=== PATIENT | male | born 1970 | race Caucasian/White ===

== ENCOUNTER → 2023-10-04 12:31 | Outpatient (REF) | payer MEDICARE, SELFPAY ==
[2023-10-04 15:30] LABS: % Eosinophils 1.3 % (0-6); % Immature Granulocytes 0.6 % (0-0.5); % Lymphocytes 18.4 % (20.5-51.1); % Monocytes 7.5 % (1.7-9.3); % Neutrophils 71.2 % (42.2-75.2); Absolute Basophils 0.2 10^3/uL (0-0.2); Absolute Eosinophils 0.2 10^3/uL (0-0.7); Absolute Immature Granulocytes 0.1 10^3/uL (0-0.05); Absolute Lymphocytes 2.9 10^3/uL (1.2-3.4); Absolute Monocytes 1.2 10^3/uL (0.1-0.6); Absolute Neutrophils 11.4 10^3/uL (1.4-6.5); Hematocrit 48.6 % (39.0-52.0); Hemoglobin 16.5 g/dL (13.0-18.0); Mean Corpuscular Hgb 32.7 pg (27.0-31.0); Mean Corpuscular Volume 96.2 fL (80.0-94.0); Mean Platelet Volume 9.7 fL (7.4-10.4); Nucleated Red Blood Cells % 0 % (-); Platelet Count 936 10^3/uL (130-400); Red Blood Cell Count 5.05 10^6/uL (4.70-6.10); Red Cell Dist. Width 13.6 % (11.5-14.5); White Blood Cell Count 15.9 10^3/uL (4.8-10.8)
[2023-10-04 15:49] LABS: ALT (SGPT) 25 U/L (0-50); AST (SGOT) 33 U/L (17-59); Albumin 3.8 g/dl (3.5-5.0); Alkaline Phosphatase 85 U/L (38-126); Blood Urea Nitrogen 8 mg/dl (9-20); Calcium 9.9 mg/dl (8.4-10.2); Carbon Dioxide 23 mmol/L (22-30); Chloride 101 mmol/L (98-107); Glucose 112 mg/dl (70-99); Potassium 4.1 mmol/L (3.5-5.1); Sodium 136 mmol/L (135-145); Total Bilirubin 0.6 mg/dl (0.2-1.3); Total Protein 6.7 g/dl (6.3-8.2); eGFR > 60.00
== END ==
LOC: HWLAB 12:31
PROVIDERS: ATTENDING PHYSICIAN Internal Medicine Hematology & Oncology; FAMILY PHYSICIAN Internal Medicine
DX: D45 Polycythemia vera (principal)
CPT/HCPCS: 36415; 80053; 85025

== ENCOUNTER → 2023-11-23 11:46 | Outpatient (REF) | payer MEDICARE, SELFPAY ==
[2023-11-23 15:04] LABS: % Basophils 1.1 % (0-2); % Eosinophils 1.4 % (0-6); % Immature Granulocytes 0.4 % (0-0.5); % Lymphocytes 19.1 % (20.5-51.1); % Monocytes 8.9 % (1.7-9.3); % Neutrophils 69.1 % (42.2-75.2); Absolute Basophils 0.2 10^3/uL (0-0.2); Absolute Eosinophils 0.2 10^3/uL (0-0.7); Absolute Immature Granulocytes 0.1 10^3/uL (0-0.05); Absolute Lymphocytes 3.2 10^3/uL (1.2-3.4); Absolute Monocytes 1.5 10^3/uL (0.1-0.6); Absolute Neutrophils 11.7 10^3/uL (1.4-6.5); Hematocrit 48.2 % (39.0-52.0); Hemoglobin 16.1 g/dL (13.0-18.0); Mean Corp Hgb Conc. 33.4 g/dL (33.0-37.0); Mean Corpuscular Hgb 32.2 pg (27.0-31.0); Mean Corpuscular Volume 96.4 fL (80.0-94.0); Mean Platelet Volume 9.6 fL (7.4-10.4); Nucleated Red Blood Cells % 0 % (-); Platelet Count 845 10^3/uL (130-400); Red Cell Dist. Width 13.7 % (11.5-14.5); White Blood Cell Count 16.9 10^3/uL (4.8-10.8)
[2023-11-23 15:18] LABS: ALT (SGPT) 22 U/L (0-50); AST (SGOT) 40 U/L (17-59); Albumin 3.9 g/dl (3.5-5.0); Alkaline Phosphatase 87 U/L (38-126); Blood Urea Nitrogen 3 mg/dl (9-20); Calcium 9.9 mg/dl (8.4-10.2); Carbon Dioxide 26 mmol/L (22-30); Chloride 97 mmol/L (98-107); Glucose 125 mg/dl (70-99); Potassium 4.7 mmol/L (3.5-5.1); Sodium 135 mmol/L (135-145); Total Bilirubin 0.5 mg/dl (0.2-1.3); Total Protein 6.7 g/dl (6.3-8.2); eGFR > 60.00
== END ==
LOC: HWLAB 11:46
PROVIDERS: ATTENDING PHYSICIAN Internal Medicine Hematology & Oncology; FAMILY PHYSICIAN Internal Medicine
DX: D45 Polycythemia vera (principal)
CPT/HCPCS: 36415; 80053; 85025

== ENCOUNTER → 2024-02-06 11:54 | Outpatient (REF) | payer MEDICARE, SELFPAY ==
[2024-02-06 15:18] LABS: % Basophils 1.2 % (0-2); % Eosinophils 1.6 % (0-6); % Immature Granulocytes 0.6 % (0-0.5); % Lymphocytes 19.3 % (20.5-51.1); % Neutrophils 69.3 % (42.2-75.2); Absolute Basophils 0.2 10^3/uL (0-0.2); Absolute Eosinophils 0.3 10^3/uL (0-0.7); Absolute Immature Granulocytes 0.1 10^3/uL (0-0.05); Absolute Lymphocytes 3.2 10^3/uL (1.2-3.4); Absolute Monocytes 1.3 10^3/uL (0.1-0.6); Absolute Neutrophils 11.3 10^3/uL (1.4-6.5); Hemoglobin 17.1 g/dL (13.0-18.0); Mean Corp Hgb Conc. 34.2 g/dL (33.0-37.0); Mean Corpuscular Hgb 32.4 pg (27.0-31.0); Mean Corpuscular Volume 94.7 fL (80.0-94.0); Mean Platelet Volume 9.6 fL (7.4-10.4); Nucleated Red Blood Cells % 0 % (-); Platelet Count 972 10^3/uL (130-400); Red Blood Cell Count 5.28 10^6/uL (4.70-6.10); Red Cell Dist. Width 14.7 % (11.5-14.5); White Blood Cell Count 16.3 10^3/uL (4.8-10.8)
[2024-02-06 15:40] LABS: ALT (SGPT) 25 U/L (0-50); AST (SGOT) 48 U/L (17-59); Albumin 3.8 g/dl (3.5-5.0); Alkaline Phosphatase 105 U/L (38-126); Blood Urea Nitrogen 3 mg/dl (9-20); Calcium 10.3 mg/dl (8.4-10.2); Carbon Dioxide 25 mmol/L (22-30); Chloride 104 mmol/L (98-107); Glucose 94 mg/dl (70-99); Potassium 5.5 mmol/L (3.5-5.1); Sodium 139 mmol/L (135-145); Total Bilirubin 0.5 mg/dl (0.2-1.3); Total Protein 6.7 g/dl (6.3-8.2); eGFR > 60.00
== END ==
LOC: HWLAB 11:54
PROVIDERS: ATTENDING PHYSICIAN Internal Medicine Hematology & Oncology; FAMILY PHYSICIAN Internal Medicine
DX: D45 Polycythemia vera (principal)
CPT/HCPCS: 36415; 80053; 85025

== ENCOUNTER 2024-04-20 12:17 | Emergency (ER) | payer MEDICARE, SELFPAY ==
[2024-04-20 12:20] VITALS: BP 137/98
--- NOTE | 2024-04-20 13:09 | ED.GENMED ---
History of Present Illness
General
Chief Complaint: Musculo-Skeletal Complaint
Source: patient
Time Seen by Provider: 04/20/24 12:45
History of Present Illness
History of Present Illness:
53yoM with a history of polycythemia vera, hyperlipidemia, and neuropathy presenting for evaluation of left foot pain. He woke up 2 days ago with pain and redness to the dorsum of the foot. He believes he may have injured his foot in his sleep but
he denies any known trauma. He has a history of foot sprains that he gets during his sleep. His pain has been worsening and he is having difficulty weight bearing. He has been taking naproxen for his symptoms. He denies any fevers or chills. Of
note, patient is currently on amoxicillin for the past 2 days for a dental infection.
Past History
Past History
ED Past Medical History: Other and Other
Social History
Tobacco: Smoker
Alcohol: Daily
Personal: Partner
Employment: Employed
Family History
Family History: Other (Mother with thyroid cancer and Onel's disease, father with diabetes and Parkinson's)
Phy Exam
Physical Exam
Physical Exam:
Left foot: There is erythema noted to the dorsum of the foot with cutaneous hyperesthesia. Area is not edematous or warm to touch. No wounds. No swelling at ankle or great toe. ROM of toes and ankle intact. 2+ PT pulse and sensation intact.
General Physical Exam
General Presentation: well appearing and no apparent distress
General age: appears stated age
General Skin: warm and dry
Course
Orders/Labs/Results
Orders:
Orders
04/20/24 12:22
Foot, Left 3 View [CR Foot - Left Min 3 Views] Urgent
Comment:
Reason For Exam: pain
04/20/24 13:12
Edvin Wrap Left-Treatment ONCE
Vital Signs
Initial and Last Documented VS:
Initial Vital Signs
Temp Pulse Resp BP Pulse Ox
98.3 F 114 16 137/98 98
04/20/24 12:20 04/20/24 12:20 04/20/24 12:20 04/20/24 12:20 04/20/24 12:20
Last Documented Vital Signs
Temp Pulse Resp BP Pulse Ox
98.3 F 114 16 137/98 98
04/20/24 12:20 04/20/24 12:20 04/20/24 12:20 04/20/24 12:20 04/20/24 12:20
MDM/Problems Addressed
Differential Diagnosis Includes:
53yoM here with atraumatic L foot pain x 2 days. No fevers or chills. He is afebrile and hemodynamically stable. He is well appearing in no distress. There is erythema to the dorsum of the foot with associated tenderness. No associated warmth. No
wounds. LLE is neurovascularly intact. Differential diagnosis includes but is not limited to: fracture, sprain, cellulitis, doubt gout based on location of erythema
X-rays of the foot obtained which are negative for fractures. Area of erythema was outlined with a skin marker. No clear infection as there is no associated warmth on exam. Patient advised to observe the area. Supportive care discussed including
RICE and PRN NSAIDs. Advised f/u with PCP and return to the ED with any worsening symptoms, spreading redness, fevers. Patient expressed understanding and is agreeable to plan. Patient discharged in stable condition.
*Critical Care Note
Total Time (30-74mins, 75-104mins- exclusive of procedures): Not Applicable
ED Attending Note
-
Portions of this chart may have been created with voice recognition software.� Occasional wrong word or��sound alike� substitutions may have occurred due to the inherent limitations of voice recognition software.
Discharge Plan
Departure
Patient Disposition: Home (Routine Discharge)
Date of Disposition: 04/20/24
Time of Disposition: 13:11
Patient with high blood pressure during this ER visit?: No
Discharge Problem:
Left foot pain
Instructions: Muscle and bone pain - Discharge instructions
Prescriptions:
No Action
aspirin 81 MG tablet,delayed release (DR/EC)
81 mg PO DAILY
prochlorperazine maleate 10 MG tablet
10 mg PO Q6HPRN PRN (Reason: headache) Qty: 20 0RF
Rx Instructions:
take with benadryl
tamsulosin 0.4 MG capsule
0.4 mg PO DAILY
Lactobacillus acidophilus 1 CAP capsule
1 cap PO DAILY
cholecalciferol (vitamin D3) 1,000 UNITS tablet
1,000 units PO DAILY
venlafaxine 75 MG capsule,extended release 24hr
75 mg PO DAILY
hydroxychloroquine 200 MG tablet
200 mg PO BID
Percocet 10-325 mg Tablet
1 tab PO Q6H PRN (Reason: PAIN)
Activity Restrictions/Additional Instructions:
Rest, ice, compress, and elevate your foot. Continue taking naproxen. You may also try hydrocortisone cream.
Please follow-up with your family doctor in 2-3 days. Return to the ER with any worsening symptoms, spreading redness, fevers.
Interventions
Interventions:
*Risk Screen - Suicide Last Done: 04/20/24 12:21
*General Assessment Last Done: 04/20/24 12:21
*Neglect/Abuse Screening Last Done: 04/20/24 12:21
ED- Fall Risk Assessment Last Done: 04/20/24 12:48
*Nursing Disposition Last Done: 04/20/24 13:43
ED-Musculoskeletal Assessment Last Done: 04/20/24 12:48
Discharge Date and Time
Discharge Date/Time: 04/20/24 13:44
Print Language: BULGARIAN
== END 2024-04-20 13:44 | disposition home or self-care (01) ==
LOC: EMR 12:17
PROVIDERS: EMERGENCY PHYSICIAN Emergency Medicine; FAMILY PHYSICIAN Internal Medicine
DX: M79.672 Pain in left foot (principal); L53.9 Erythematous condition, unspecified; K04.7 Periapical abscess without sinus; D45 Polycythemia vera; E78.5 Hyperlipidemia, unspecified; G62.9 Polyneuropathy, unspecified; F17.200 Nicotine dependence, unspecified, uncomplicated; Z79.82 Long term (current) use of aspirin; Z88.8 Allergy status to other drugs, medicaments and biological substances
CPT/HCPCS: 99283; 73630

== ENCOUNTER → 2024-06-03 11:40 | Outpatient (REF) | payer MEDICARE, OTHER, SELFPAY ==
[2024-06-03 16:31] LABS: ALT (SGPT) 24 U/L (0-50); AST (SGOT) 61 U/L (17-59); Albumin 3.8 g/dl (3.5-5.0); Alkaline Phosphatase 100 U/L (38-126); Blood Urea Nitrogen 6 mg/dl (9-20); Calcium 9.8 mg/dl (8.4-10.2); Carbon Dioxide 28 mmol/L (22-30); Chloride 101 mmol/L (98-107); Glucose 93 mg/dl (70-99); Sodium 138 mmol/L (135-145); Total Bilirubin 0.4 mg/dl (0.2-1.3); Total Protein 6.5 g/dl (6.3-8.2); eGFR > 60.00
[2024-06-03 16:43] LABS: % Basophils 1.2 % (0-2); % Eosinophils 1.9 % (0-6); % Immature Granulocytes 0.5 % (0-0.5); % Lymphocytes 19.6 % (20.5-51.1); % Monocytes 8.6 % (1.7-9.3); % Neutrophils 68.2 % (42.2-75.2); Absolute Basophils 0.2 10^3/uL (0-0.2); Absolute Eosinophils 0.3 10^3/uL (0-0.7); Absolute Immature Granulocytes 0.1 10^3/uL (0-0.05); Absolute Lymphocytes 2.9 10^3/uL (1.2-3.4); Absolute Monocytes 1.3 10^3/uL (0.1-0.6); Hematocrit 50.3 % (39.0-52.0); Mean Corp Hgb Conc. 33.8 g/dL (33.0-37.0); Mean Corpuscular Hgb 31.8 pg (27.0-31.0); Mean Corpuscular Volume 94.2 fL (80.0-94.0); Nucleated Red Blood Cells % 0 % (-); Platelet Count 868 10^3/uL (130-400); Red Blood Cell Count 5.34 10^6/uL (4.70-6.10); Red Cell Dist. Width 14.2 % (11.5-14.5); White Blood Cell Count 14.7 10^3/uL (4.8-10.8)
== END ==
LOC: HWLAB 11:40
PROVIDERS: ATTENDING PHYSICIAN Internal Medicine Hematology & Oncology; FAMILY PHYSICIAN Internal Medicine
DX: D45 Polycythemia vera (principal)
CPT/HCPCS: 36415; 80053; 85025

== ENCOUNTER → 2024-09-10 12:23 | Outpatient (REF) | payer MEDICARE, OTHER, SELFPAY ==
[2024-09-10 16:13] LABS: % Basophils 1.2 % (0-2); % Eosinophils 1.2 % (0-6); % Immature Granulocytes 0.6 % (0-0.5); % Lymphocytes 18.9 % (20.5-51.1); % Monocytes 9.2 % (1.7-9.3); % Neutrophils 68.9 % (42.2-75.2); Absolute Basophils 0.2 10^3/uL (0-0.2); Absolute Eosinophils 0.2 10^3/uL (0-0.7); Absolute Immature Granulocytes 0.1 10^3/uL (0-0.05); Absolute Lymphocytes 2.7 10^3/uL (1.2-3.4); Absolute Monocytes 1.3 10^3/uL (0.1-0.6); Hematocrit 48.8 % (39.0-52.0); Hemoglobin 15.9 g/dL (13.0-18.0); Mean Corp Hgb Conc. 32.6 g/dL (33.0-37.0); Mean Corpuscular Hgb 32.4 pg (27.0-31.0); Mean Corpuscular Volume 99.4 fL (80.0-94.0); Mean Platelet Volume 9.6 fL (7.4-10.4); Nucleated Red Blood Cells % 0 % (-); Platelet Count 734 10^3/uL (130-400); Red Blood Cell Count 4.91 10^6/uL (4.70-6.10); Red Cell Dist. Width 14.6 % (11.5-14.5); White Blood Cell Count 14.5 10^3/uL (4.8-10.8)
== END ==
LOC: HWLAB 12:23
PROVIDERS: ATTENDING PHYSICIAN Internal Medicine Hematology & Oncology; FAMILY PHYSICIAN Internal Medicine
DX: D45 Polycythemia vera (principal)
CPT/HCPCS: 36415; 85025

== ENCOUNTER → 2025-07-07 12:43 | Outpatient (REF) | payer MEDICARE, SELFPAY ==
[2025-07-07 14:26] LABS: Hematocrit 51.6 % (39.0-52.0); Hemoglobin 17.1 g/dL (13.0-18.0); Mean Corp Hgb Conc. 33.1 g/dL (33.0-37.0); Mean Corpuscular Volume 92.6 fL (80.0-94.0); Nucleated Red Blood Cells % 0 % (-); Platelet Count 881 10^3/uL (130-400); Red Cell Dist. Width 14.1 % (11.5-14.5)
[2025-07-07 14:46] LABS: ALT (SGPT) 23 U/L (0-50); AST (SGOT) 42 U/L (17-59); Albumin 4.3 g/dl (3.5-5.0); Alkaline Phosphatase 86 U/L (38-126); Blood Urea Nitrogen 8 mg/dl (9-20); Calcium 10.0 mg/dl (8.4-10.2); Carbon Dioxide 28 mmol/L (22-30); Chloride 98 mmol/L (98-107); Glucose 90 mg/dl (70-99); Potassium 5.6 mmol/L (3.5-5.1); Sodium 133 mmol/L (135-145); Total Protein 7.3 g/dl (6.3-8.2); eGFR > 60.00
== END ==
LOC: REG 12:43
PROVIDERS: ATTENDING PHYSICIAN Internal Medicine Hematology & Oncology; FAMILY PHYSICIAN Internal Medicine
DX: F43.10 Post-traumatic stress disorder, unspecified (principal); F41.0 Panic disorder [episodic paroxysmal anxiety]; D45 Polycythemia vera
CPT/HCPCS: 36415; 80053; 85025